=== PATIENT | female | born 1965 | race Caucasian/White ===

== ENCOUNTER 2018-12-05 03:39 | Emergency (ER) | payer MEDICARE, MEDICAID ==
[~2018-12-05] VITALS: Ht 172.7 cm; Wt 81.8 kg
[~2018-12-05 03:39] MED LIST: ASCO-288 PO; ASPI325T68 PO; ATOR10TA70 PO; CALC-1197 PO; CETI-102 PO; ESCI20TA38 PO; HYDR-3968 PO; INSU100V13; LACT1CAP67 PO; PREN1TAB75 PO; RAMI5CAP65 PO
[2018-12-05] MEDS ORDERED: dextrose 5%-1/2 normal saline 1,000 ML IV ONE (03:49)
[2018-12-05] MEDS ORDERED: normal saline 1000ML IV soln IVB ONE (04:40)
[2018-12-05] MEDS ORDERED: iohexol 350MG/ML 100ml bottle IV ONE (04:44)
[2018-12-05 05:05] LABS: ALANINE AMINOTRANSFERASE 21 U/L (12-78); ALBUMIN 3.4 G/DL (3.4-5.0); ALBUMIN/GLOBULIN RATIO 0.9 (1.1-1.5); ALKALINE PHOSPHATASE 90 IU/L (46-116); ANION GAP 13 (8-16); ASPARTATE AMINO TRANSFERASE 33 U/L (10-37); BILIRUBIN,TOTAL 0.3 MG/DL (0.1-1.0); BLOOD UREA NITROGEN 31 MG/DL (7-18); BUN/CREATININE RATIO 16.5 (6.6-38.0); CALCIUM 8.1 MG/DL (8.5-10.1); CHLORIDE 105 MMOL/L (99-107); CREATININE 1.88 MG/DL (0.40-0.90); ETHANOL 0.105 GM/DL (0.0-0.010); GLUCOSE 270 MG/DL (70-104); MAGNESIUM 1.8 MG/DL (1.5-2.4); POTASSIUM 4.7 MMOL/L (3.5-5.1); SODIUM 140 MMOL/L (135-145); TOTAL CARBON DIOXIDE 22.4 MMOL/L (24-32); TOTAL PROTEIN 7.1 G/DL (6.4-8.2); eGFR 28 ML/MIN
[2018-12-05] MEDS ORDERED: morphine 4 MG/ML inj SYRINge IV ONE (05:25)
[2018-12-05] MEDS ORDERED: meperidine/PF 50mg/ml syringe IV ONE (05:25)
[2018-12-05 05:34] LABS: CLARITY,URINE CLEAR (Clear); COLOR,URINE YELLOW (Yellow); GLUCOSE, URINE 250 mg/dl (Neg); KETONES,URINE NEGATIVE (Neg); LEUKOCYTE ESTERASE ,URINE NEGATIVE (Neg); NITRITES, URINE NEGATIVE (Neg); OCCULT BLOOD,URINE SMALL (Neg); PH,URINE 7.5 (4.8-8.0); PROTEIN,URINE 30 mg/dl (Neg); UROBILINOGEN,URINE 0.2 E.U/dL (0.2-1.0)
[2018-12-05 05:38] LABS: URINE HCG NEGATIVE (NEG)
[2018-12-05] MEDS ORDERED: normal saline 1000ml 1,000 ML IV ONE ×3 (05:40)
[2018-12-05 05:43] LABS: UA COLLECTION TYPE FOLEY CATH
[2018-12-05 05:47] LABS: URINE AMPHETAMINE SCREEN NEGATIVE (Neg); URINE BARBITUATE SCREEN NEGATIVE (Neg); URINE BENZODIAZEPINES SCREEN NEGATIVE (Neg); URINE CANNABINOID SCREEN NEGATIVE (Neg); URINE COCAINE SCREEN NEGATIVE (Neg); URINE METHADONE SCREEN NEGATIVE (Neg); URINE OPIATE SCREEN NEGATIVE (Neg); URINE PHENCYCLIDINE SCREEN NEGATIVE (Neg); WBC,URINE 0-4 /HPF (0-4)
[2018-12-05 05:48] LABS: BACTERIA,URINE NONE SEEN /HPF (Neg); SQUAMOUS EPITHELIAL CELL,UR MODERATE /LPF (FEW)
--- NOTE | 2018-12-05 06:00 | NUR ---
Per Dr Scott, hold D5 1/2NS fluids at this time. Most recent BS is 270
[2018-12-05] MEDS ORDERED: ondansetron/PF 4mg/2ml inj IV ONE (07:00)
[2018-12-05 07:28] LABS: BASOPHILS % (AUTO) 0.1 % (0-1); EOSINOPHILS % (AUTO) 0.3 % (0-6); HEMATOCRIT 31.6 % (35.0-45.0); HEMOGLOBIN 10.7 g/dl (12.0-16.0); LYMPHOCYTES # (AUTO) 0.7 X10'3 (1.1-4.8); LYMPHOCYTES % (AUTO) 14.1 % (21-51); MEAN CORPUSCULAR HGB CONC 33.8 g/dL (33.0-36.5); MEAN CORPUSCULAR VOLUME 109.5 FL (78-98); MEAN PLATELET VOLUME 6.6 FL (7.4-10.4); MONOCYTES # (AUTO) 0.3 X10'3 (0-0.9); MONOCYTES % (AUTO) 5.7 % (2-12); NEUTROPHILS # (AUTO) 4.2 X10'3 (1.8-7.7); NEUTROPHILS % (AUTO) 79.8 % (42-75); PLATELET COUNT 307 X10'3 (140-440); RED BLOOD COUNT 2.89 X10'6 (4.20-5.60); RED CELL DISTRIBUTION WIDTH 19.9 % (11.5-14.5); WHITE BLOOD COUNT 5.3 X10'3 (4.5-11.0)
[2018-12-05 07:45] LABS: PARTIAL THROMBOPLASTIN TIME 25 SECONDS (22-32)
[2018-12-05 08:25] VITALS: BP 168/82
== END 2018-12-05 08:27 | disposition short-term general hospital (02) ==
LOC: ER 03:42
DX: S82.191A Other fracture of upper end of right tibia, initial encounter for closed fracture (principal); E11.649 Type 2 diabetes mellitus with hypoglycemia without coma; F10.129 Alcohol abuse with intoxication, unspecified; E78.00 Pure hypercholesterolemia, unspecified; I10 Essential (primary) hypertension; Z86.73 Personal history of transient ischemic attack (TIA), and cerebral infarction without residual deficits; Z88.6 Allergy status to analgesic agent; Z79.82 Long term (current) use of aspirin; Z79.899 Other long term (current) drug therapy; Z79.4 Long term (current) use of insulin; X50.1XXA Overexertion from prolonged static or awkward postures, initial encounter; Y93.89 Activity, other specified; Y92.89 Other specified places as the place of occurrence of the external cause; Y99.9 Unspecified external cause status; Y90.9 Presence of alcohol in blood, level not specified
CPT/HCPCS: 27752; 36415; 71045; 73564; 80053; 80305; 80320; 81001; 81025; 82948; 83735; 85025; 85610; 85730; 93005; 96374; 96375; 99291; J2175; J2270; J2405; Q9967

== ENCOUNTER 2023-10-27 17:34 | Emergency (ER) | payer MEDICARE, MEDICAID ==
[~2023-10-27] VITALS: Ht 175.3 cm; Wt 104.0 kg
[~2023-10-27 17:34] MED LIST changes: +AMLO5TAB16 PO; -ASCO-288 PO; +ASPI-1071 PO; -ASPI325T68 PO; -CALC-1197 PO; +CARV6.253 PO; -CETI-102 PO; -ESCI20TA38 PO; -HYDR-3968 PO; -INSU100V13; +INSU100V13 SQ; -LACT1CAP67 PO; +ONQPUMP ADDCANAL; -PREN1TAB75 PO; -RAMI5CAP65 PO; +RAMI5CAP71 PO
[2023-10-27 19:07] LABS: BASOPHILS % (AUTO) 0 % (0-1); EOSINOPHILS # (AUTO) 0.2 X10'3 (0-0.9); EOSINOPHILS % (AUTO) 3.5 % (0-6); HEMATOCRIT 39.3 % (35.0-45.0); HEMOGLOBIN 12.7 g/dl (12.0-16.0); LYMPHOCYTES # (AUTO) 1.6 X10'3 (1.1-4.8); LYMPHOCYTES % (AUTO) 23.3 % (21-51); MEAN CORPUSCULAR HEMOGLOBIN 29.1 PG (27.0-31.0); MEAN CORPUSCULAR HGB CONC 32.4 g/dL (33.0-36.5); MEAN CORPUSCULAR VOLUME 89.7 FL (78-98); MEAN PLATELET VOLUME 7.6 FL (7.4-10.4); MONOCYTES # (AUTO) 0.5 X10'3 (0-0.9); MONOCYTES % (AUTO) 6.8 % (2-12); NEUTROPHILS # (AUTO) 4.5 X10'3 (1.8-7.7); NEUTROPHILS % (AUTO) 66.4 % (42-75); PLATELET COUNT 291 X10'3 (140-440); RED BLOOD COUNT 4.38 X10'6 (4.20-5.60); RED CELL DISTRIBUTION WIDTH 14.8 % (11.5-14.5); WHITE BLOOD COUNT 6.8 X10'3 (4.5-11.0)
[2023-10-27 19:14] LABS: ALBUMIN 3.3 G/DL (3.4-5.0); ANION GAP 7 (8-16); BLOOD UREA NITROGEN 36 MG/DL (7-18); BUN/CREATININE RATIO 13.8 (10.0-20.0); CALCIUM 9.2 MG/DL (8.5-10.1); CHLORIDE 103 MMOL/L (99-107); CREATININE 2.61 MG/DL (0.40-0.90); GLUCOSE 169 MG/DL (70-104); POTASSIUM 4.4 MMOL/L (3.5-5.1); SODIUM 138 MMOL/L (135-145); TOTAL CARBON DIOXIDE 28.3 MMOL/L (24-32); eCRCL 25 ML/MIN; eGFR 19 ML/MIN
[2023-10-27] MEDS: hyDRALAzine 10mg tablet PO ONE (19:49)
[2023-10-27] MEDS: amLODIPine 5mg tablet PO ONE (19:49)
[2023-10-27] MEDS: diazepam 5mg tablet PO ONE (19:50)
[2023-10-27] MEDS ORDERED: CEPH-585 PO (21:27)
[2023-10-27] MEDS: cephalexin 250mg capsule PO ONE (21:33)
[2023-10-27 21:35] VITALS: BP 179/88; PULSE 80; RESP 14; TEMP 98.4; O2SAT 98
== END 2023-10-27 21:36 | disposition home or self-care (01) ==
LOC: ER 17:34
DX: L03.115 Cellulitis of right lower limb (principal); E78.00 Pure hypercholesterolemia, unspecified; I10 Essential (primary) hypertension; E10.9 Type 1 diabetes mellitus without complications; M79.661 Pain in right lower leg; Z88.6 Allergy status to analgesic agent; Z79.899 Other long term (current) drug therapy; Z79.2 Long term (current) use of antibiotics; Z79.4 Long term (current) use of insulin
CPT/HCPCS: 36415; 80048; 84145; 85025; 87040; 93971; 99285